=== PATIENT | male | born 1985 | race Two or more races ===

== ENCOUNTER 2017-06-01 23:47 | Emergency (ER) | payer SELFPAY ==
[~2017-06-01] VITALS: Ht 185.4 cm; Wt 108.9 kg
[2017-06-02 00:03] VITALS: BP 134/97
== END 2017-06-02 03:50 | disposition left against medical advice (07) ==
LOC: ER 23:47
DX: R06.02 Shortness of breath (principal); J45.909 Unspecified asthma, uncomplicated; Z53.21 Procedure and treatment not carried out due to patient leaving prior to being seen by health care provider